=== PATIENT | female | born 1995 | race Native Hawaiian/Other Pacific Islander ===

== ENCOUNTER 2023-05-04 08:48 | Outpatient (CLI) | payer BC, SELFPAY | END 2023-05-04 08:49 | disposition home or self-care (01) | PROVIDERS: PCP Physician Assistant Medical; Visit Provider Emergency Medicine | DX: Z00.00 Encounter for general adult medical examination without abnormal findings (principal); R63.5 Abnormal weight gain; Z13.1 Encounter for screening for diabetes mellitus; Z13.6 Encounter for screening for cardiovascular disorders; Z68.32 Body mass index [BMI] 32.0-32.9, adult | CPT/HCPCS: 80053; 80061; 84443 ==

== ENCOUNTER 2023-08-02 18:32 | Outpatient (CLI) | payer BC, SELFPAY | END 2023-08-02 18:33 | disposition home or self-care (01) | LOC: LKVREF 18:32 | PROVIDERS: PCP Emergency Medicine; Visit Provider Emergency Medicine | DX: R63.5 Abnormal weight gain (principal); R77.8 Other specified abnormalities of plasma proteins | CPT/HCPCS: 80076; 82565 ==

== ENCOUNTER 2024-09-18 09:16 | Outpatient (CLI) | payer BC, SELFPAY | END 2024-09-18 09:17 | disposition home or self-care (01) | PROVIDERS: PCP Emergency Medicine; Visit Provider Emergency Medicine | DX: E78.2 Mixed hyperlipidemia (principal); Z13.1 Encounter for screening for diabetes mellitus | CPT/HCPCS: 80053; 80061 ==

== ENCOUNTER 2024-10-11 10:40 | Outpatient (CLI) | payer BC, SELFPAY ==
[2024-10-13 01:44] LABS: HPV Source Cervical; HPV, High Risk by TMA Detected
[2024-10-13 13:00] LABS: HPV Genotype 16 by TMA Not Detected; HPV Genotype 18/45 by TMA Not Detected; HPVG Source Cervical
[2024-10-22 14:12] LABS: Pap Test Reviewed by Path Done
== END 2024-10-11 10:41 | disposition home or self-care (01) ==
PROVIDERS: PCP Emergency Medicine; Visit Provider Emergency Medicine
DX: Z12.4 Encounter for screening for malignant neoplasm of cervix (principal); Z11.51 Encounter for screening for human papillomavirus (HPV)
CPT/HCPCS: 87624; 87625; 88141; 88142